=== PATIENT | female | born 1985 | race Caucasian/White ===

== ENCOUNTER 2016-11-21 13:18 | Emergency (ER) | payer OTHER ==
[2016-11-21] MEDS ORDERED: ZOFRAN IV ONE (14:57)
[2016-11-21] MEDS ORDERED: NACL 0.9% 1000 ML 1,000 ML IV ONE ×2 (14:57→19:52)
--- NOTE | 2016-11-21 14:57 | Emergency Department Report ---
HPI - General Chief Complaint: Dyspnea/Respdistress Time Seen by Provider: 11/21/16 14:18 - HPI HPI: This is a 31-year-old female presents to the emergency department with complaint of dehydration, the inability to eat and drink and some generalized weakness. The patient also says that while she does not feel short of breath overall she does get some shortness of breath and/or fatigue with exertion. The patient was recently diagnosed with diverticulitis at [facility] that she calls her "intestinal infection" and says that she is still on antibiotics for it. She says that her abdomen no longer hurts but she still feels the effects of the infection. She says that when she eats she gets nausea and vomiting. She feels like she has not eaten anything substantial for the past 2 weeks. No recent travel or sick contacts at home. She does not have a primary care doctor. She denies any other past medical history. ED Past Medical Hx - Past Medical History Previous Medical History?: Yes Additional medical history: Duodenal stenosis - Surgical History Past Surgical History?: Yes Additional Surgical History: Duodenal stenosis - Social History Smoking Status: Never Smoker Substance Use Type: None - Medications Home Medications: Home Medications Medication Instructions Recorded Confirmed Last Taken Type Ondansetron [Zofran TAB] 4 mg PO Q8HR PRN #15 tablet 11/21/16 Unknown Rx ED Review of Systems ROS: Stated complaint: SOB,INFECTION OF INTESTINES Other details as noted in HPI Comment: All other systems reviewed and negative Constitutional: weakness. denies: chills, fever Eyes: denies: eye pain, eye discharge, vision change ENT: denies: ear pain, throat pain Respiratory: SOB with exertion. denies: cough Cardiovascular: palpitations. denies: chest pain Gastrointestinal: nausea, vomiting Genitourinary: denies: urgency, dysuria, discharge Musculoskeletal: denies: back pain, joint swelling, arthralgia Skin: denies: rash, lesions Neurological: weakness. denies: headache, numbness Physical Exam - Physical Exam Vital Signs: Vital Signs 11/21/16 13:44 Temperature 98.3 F Pulse Rate 144 H Respiratory 18 Rate Blood Pressure 147/93 O2 Sat by Pulse 98 Oximetry Physical Exam: GENERAL: The patient is well-developed well-nourished. HEENT: Normocephalic. Atraumatic. Extraocular motions are intact. Patient has moist mucous membranes. Pupils equal reactive to light bilaterally. NECK: Supple. Trachea is midline. CHEST/LUNGS: Clear to auscultation. There is no respiratory distress noted. HEART/CARDIOVASCULAR: Regular. There is mild tachycardia. There is no gallop rub or murmur. ABDOMEN: Abdomen is soft, nontender. Patient has normal bowel sounds. Morbidly obese habitus. SKIN: There is no rash. There is no edema. There is no diaphoresis. NEURO: The patient is awake, alert, and oriented. The patient is cooperative. The patient has no focal neurologic deficits. The patient has normal speech. MUSCULOSKELETAL: There is no tenderness or deformity. There is no limitation range of motion. There is no evidence of acute injury. ED Course Vital Signs 11/21/16 13:44 Temperature 98.3 F Pulse Rate 144 H Respiratory 18 Rate Blood Pressure 147/93 O2 Sat by Pulse 98 Oximetry ED Medical Decision Making - Lab Data Result diagrams: 11/21/16 14:59 11/21/16 14:59 - EKG Data -: EKG Interpreted by Me EKG shows normal: sinus rhythm, axis, intervals, QRS complexes, ST-T waves Rate: tachycardia (127 bpm) - EKG Data When compared to previous EKG there are: previous EKG unavailable Interpretation: other (sinus tach) - Radiology Data Radiology results: report reviewed, image reviewed interpreted by me: Chest x-ray did not show any acute process. Heart is normal shape and size. No effusions. No pneumothorax. No signs of pneumonia seen. CT angiography of the chest does not show any evidence for pulmonary embolus and. Soft tissue density focus in the anterior mediastinum. The location and configuration of his focused suggest residual thymus. Marked elevation of the right hemidiaphragm. - Medical Decision Making This is a 31-year-old female presents to the emergency department with complaint of shortness of breath, as well as some nausea and vomiting. The patient recently was diagnosed with diverticulitis and placed on antibiotics at [facility]. However even before this the patient has been having nausea and /or vomiting any food or liquid administration. She currently has no abdominal pain and does not have any fever, both of which she seemed to have when she was at [facility]. Patient's labs show elevated transaminases, slightly elevated lipase, and a TSH close to 0. However since the patient is having no abdominal discomfort, I believe the elevated belly labs to be secondary to not eating and to the nausea and vomiting. The chest x-ray was done that does not show any signs of pneumonia, pleural effusions, pneumothorax or any acute process. Patient has an EKG that only shows sinus tachycardia. She had an elevated d-dimer so a CT angiography of the chest was done. There was no pulmonary embolism, pleural effusions or any acute process. Patient was given 2 L of IV fluid resuscitation. Since tachycardia resolved and the patient says she is feeling much better. However most of her problem occurs with exertion. I do believe there is a significant amount of her symptoms that are due to deconditioning as the patient admits that she is not left the bed much in the past few weeks. I believe she is also physically deconditioned from a lack of food and drink. The patient has been encouraged to increase oral rehydration and will be given some Zofran ODT to assist with this. She does not yet have to jump back into full/normal meals but she's been encouraged to eat stuff that is easy on the stomach such as the Dinesh diet indurated small quantities. She already has a primary care doctor and collar packer for follow-up. She will return to the ER with any worsening of her symptoms or any acute distress. Critical care attestation.: If time is entered above; I have spent that time in minutes in the direct care of this critically ill patient, excluding procedure time. ED Disposition Clinical Impression: Dehydration, Transaminitis, Shortness of breath, Hyperthyroidism Nausea and vomiting Qualifiers: Vomiting type: unspecified Vomiting Intractability: non-intractable Qualified Code(s): R11.2 - Nausea with vomiting, unspecified Disposition: DISCHARGED TO HOME OR SELFCARE Is pt being admited?: No Condition: Stable Instructions: Dehydration (ED), Hyperthyroidism (ED), Acute Nausea and Vomiting (ED), Dyspnea (ED) Additional Instructions: Please follow-up with your primary care doctor and collar packer. Increase your oral rehydration. Return to the emergency department with any worsening of your symptoms or any acute distress. Prescriptions: Ondansetron [Zofran TAB] 4 mg PO Q8HR PRN #15 tablet PRN Reason: Nausea Referrals: PRIMARY CARE,MD [Primary Care Provider] - 3-5 Days Forms: Work/School Release Form(ED) Time of Disposition: 20:11
[2016-11-21 15:18] LABS: Basophils % (Auto) 0.5 % (0.0-1.8); Eosinophils % (Auto) 0.4 % (0.0-4.3); Hematocrit 41.5 % (30.3-42.9); Hemoglobin 13.3 gm/dl (10.1-14.3); Mean Corpuscular HGB Conc 32 % (30-34); Mean Corpuscular Hemoglobin 26 pg (28-32); Mean Corpuscular Volume 82 fl (79-97); Platelet Count 388 K/mm3 (140-440); Red Blood Count 5.06 M/mm3 (3.65-5.03); Red Cell Distribution Width 14.6 % (13.2-15.2)
[2016-11-21 15:33] LABS: Anion Gap 23 mmol/L; Blood Urea Nitrogen 11 mg/dL (7-17); Calcium 10.4 mg/dL (8.4-10.2); Carbon Dioxide 21 mmol/L (22-30); Chloride 99.3 mmol/L (98-107); Glucose 127 mg/dL (65-100); Potassium 4.3 mmol/L (3.6-5.0); Sodium 139 mmol/L (137-145)
[2016-11-21 16:06] LABS: Albumin 3.6 g/dL (3.9-5); Albumin/Globulin Ratio 0.8 %; Bilirubin,Direct 0.2 mg/dL (0-0.2); Bilirubin,Indirect 0.3 mg/dL; Bilirubin,Total 0.5 mg/dL (0.1-1.2); Total Protein 8.1 g/dL (6.3-8.2)
--- NOTE | 2016-11-21 16:10 | XRay Report ---
ROUTINE CHEST, TWO VIEWS: PA and lateral views demonstrate the heart and mediastinal contour to be of normal size and shape. The lungs are clear and fully expanded and the soft tissues and bony structures are normal. IMPRESSION: Normal study.
[2016-11-21] MEDS ORDERED: NACL ONE ×2 (17:11→17:15)
--- NOTE | 2016-11-21 19:15 | Cat Scan Report ---
FINAL REPORT EXAM: CT ANGIO CHEST HISTORY: SOB, elevated dimer TECHNIQUE: Enhanced CT of the chest at 2.5 mm axial intervals following a pulmonary embolism protocol. Coronal and sagittal imaging were also obtained. Oblique coronal MIP projections were obtained. Contrast: 100 ml of Omnipaque 350 given IV. PRIORS: None. FINDINGS: There is no evidence for pulmonary embolism in the main pulmonary artery, right and left pulmonary arteries or their major distributions. However, CT does not exclude distal pulmonary emboli. In the anterior mediastinum, there is a elongated soft tissue density focus measuring 3.6 x 2.1 x 6.5 cm (axial image 31, series 3, and coronal image 113, series 202). In this location and with this configuration, this is probably residual thymus, however, rather than fat density, it is intermediate soft tissue density which could be due to enhancement. Therefore, residual thymus cannot be confirmed. Unenhanced CT may be helpful to confirm internal fat to support a benign entity. Otherwise, etiologies for anterior mediastinal mass are not entirely excluded, including lymphoma. Otherwise, the lung parenchyma are expanded and clear with no evidence for parenchymal nodules, infiltrates, congestion, or pleural effusion. There is no evidence for bilateral hilar or axillary adenopathy. Cardiovascular structures are within normal limits. Marked elevation of the right hemidiaphragm is noted. Images through the lung bases include the upper abdomen which show no abnormalities of the visualized abdominal viscera. Bony structures demonstrate no focal abnormalities. IMPRESSION: 1. no evidence for pulmonary embolism. 2. Soft tissue density focus in the anterior mediastinum. The location and configuration of this focus suggest residual thymus. However, it is intermediate in density which does not confirm thymus. Unenhanced CT of the chest is suggested on an outpatient basis. 3. Marked elevation of the right hemidiaphragm.
[2016-11-21] MEDS ORDERED: NACL 0.9% 1000 ML 1,000 ML ONE (19:45)
[2016-11-21 21:19] VITALS: BP 113/71
== END 2016-11-21 22:20 | disposition home or self-care (01) ==
LOC: ED 13:18
DX: E86.0 Dehydration (principal); R74.0 Nonspecific elevation of levels of transaminase and lactic acid dehydrogenase [LDH]; E05.90 Thyrotoxicosis, unspecified without thyrotoxic crisis or storm; R06.02 Shortness of breath; R11.2 Nausea with vomiting, unspecified
CPT/HCPCS: 36415; 71020; 71275; 80048; 80074; 83690; 84439; 84443; 84481; 84484; 84703; 85025; 85379; 93005; 93010; 96361; 96374; 99285; J2405; J7030; Q9967

== ENCOUNTER 2017-01-17 17:49 | Emergency (ER) | payer OTHER ==
[2017-01-17 20:24] VITALS: BP 179/109
[2017-01-17 20:49] LABS: Basophils % (Auto) 0.3 % (0.0-1.8); Eosinophils % (Auto) 0.2 % (0.0-4.3); Hemoglobin 12.2 gm/dl (10.1-14.3); Mean Corpuscular HGB Conc 32 % (30-34); Mean Corpuscular Hemoglobin 27 pg (28-32); Mean Corpuscular Volume 83 fl (79-97); Platelet Count 288 K/mm3 (140-440); Red Blood Count 4.57 M/mm3 (3.65-5.03); Red Cell Distribution Width 14.6 % (13.2-15.2); White Blood Count 6.8 K/mm3 (4.5-11.0)
[2017-01-17 21:06] LABS: Alanine Aminotransferase 50 units/L (7-56); Albumin 3.6 g/dL (3.9-5); Albumin/Globulin Ratio 1.1 %; Alkaline Phosphatase 61 units/L (35-129); Anion Gap 25 mmol/L; Blood Urea Nitrogen 8 mg/dL (7-17); Calcium 10.3 mg/dL (8.4-10.2); Carbon Dioxide 20 mmol/L (22-30); Chloride 99.5 mmol/L (98-107); Glucose 84 mg/dL (65-100); Lipase 44 units/L (13-60); Potassium 4.4 mmol/L (3.6-5.0); Sodium 140 mmol/L (137-145)
[2017-01-17 22:02] LABS: Bacteria,Urine 1+ /HPF (Negative); Bilirubin,Urine NEG (Negative); Blood,Urine SM (Negative); Ketones,Urine 80 mg/dL (Negative); Leukocyte Esterase,Urine NEG (Negative); Mucus,Urine FEW /HPF; Nitrite,Urine NEG (Negative); Urobilinogen,Urine < 2.0 mg/dL (<2.0); WBC,Urine < 1.0 /HPF (0.0-6.0)
--- NOTE | 2017-01-19 17:06 | ED Elopement Review ---
ED Pt Elopement review - Results review Lab results: Laboratory Tests 01/17/17 01/17/17 01/17/17 20:30 20:30 Unknown WBC 6.8 RBC 4.57 Hgb 12.2 Hct 38.0 MCV 83 MCH 27 L MCHC 32 RDW 14.6 Plt Count 288 Lymph % (Auto) 17.3 Sutton % (Auto) 11.8 H Eos % (Auto) 0.2 Baso % (Auto) 0.3 Lymph # 1.2 Sutton # 0.8 Eos # 0.0 Baso # 0.0 Seg Neutrophils % 70.4 H Seg Neutrophils # 4.8 Sodium 140 Potassium 4.4 Chloride 99.5 Carbon Dioxide 20 L Anion Gap 25 BUN 8 Creatinine 0.2 L Estimated GFR > 60 BUN/Creatinine Ratio 40.00 Glucose 84 Calcium 10.3 H Total Bilirubin 0.70 AST 57 H ALT 50 Alkaline Phosphatase 61 Total Protein 7.0 Albumin 3.6 L Albumin/Globulin Ratio 1.1 Lipase 44 Urine Color Yellow Urine Turbidity Slightly-cloudy Urine pH 5.0 Ur Specific [place] 1.020 Urine Protein 30 mg/dl Urine Glucose (UA) 50 Urine Ketones 80 Urine Blood Sm Urine Nitrite Neg Urine Bilirubin Neg Urine Urobilinogen < 2.0 Ur Leukocyte Esterase Neg Urine WBC (Auto) < 1.0 Urine RBC (Auto) 1.0 U Epithel Cells (Auto) 15.0 H Urine Bacteria (Auto) 1+ Urine Mucus Few Urine HCG, Qual Negative - Call Back decision Pt Call Back Decision: No action required
== END 2017-01-17 23:40 | disposition left against medical advice (07) ==
LOC: ED 17:49
DX: R11.0 Nausea (principal); R63.0 Anorexia; Z53.21 Procedure and treatment not carried out due to patient leaving prior to being seen by health care provider
CPT/HCPCS: 36415; 80053; 81001; 81025; 83690; 85025

== ENCOUNTER 2017-01-23 09:38 | Emergency (ER) | payer OTHER ==
[2017-01-23] MEDS ORDERED: ZOFRAN ONE (10:45)
[2017-01-23] MEDS ORDERED: ZOFRAN IV ONE (10:55)
[2017-01-23] MEDS ORDERED: NACL 0.9% 1000 ML 1,000 ML IV ONE (11:12)
--- NOTE | 2017-01-23 11:17 | Emergency Department Report ---
ED Dizziness HPI - General Chief Complaint: Dizziness Stated Complaint: GENERAL WEAKNESS Time Seen by Provider: 01/23/17 11:02 Source: patient, EMS, RN notes reviewed, old records reviewed Mode of arrival: Stretcher Limitations: No Limitations - History of Present Illness Initial Comments: 31-year-old female presents to the emergency department via EMS complaining of dizziness. Patient states she was discharged from the hospital 2 days ago after being admitted for acute diverticulitis. At this time, she was also noted to have hyperthyroidism. Patient states she took her first dose of methimazole last night. This morning while she was getting dressed, the patient states she began feeling lightheaded, like she was going to pass out. Patient was sitting when this occurred. She did not lose consciousness. Patient also reports she has not had a bowel movement in one week. She reports nausea, but denies vomiting. There has been no fever. There are no other complaints. MD Complaint: near syncope -: Sudden, This morning Timing: sudden onset Description: near-syncope History of Same: No History of Trauma: No Severity: moderate Improves With: rest Worsens With: nothing - Related Data Previous Rx's Medication Instructions Recorded Last Taken Type Ciprofloxacin [Ciprofloxacin ORAL 500 mg PO Q12H #20 ml 01/21/17 Unknown Rx LIQ] Methimazole [Tapazole] 5 mg PO Q8H #30 tab 01/21/17 Unknown Rx Propranolol [Inderal] 40 mg PO Q12HR #30 tablet 01/21/17 Unknown Rx metroNIDAZOLE [Flagyl TAB] 500 mg PO Q8HR #30 tablet 01/21/17 Unknown Rx oxyCODONE /ACETAMINOPHEN [Percocet 1 tab PO BID PRN #10 tablet 01/21/17 Unknown Rx 5/325] Allergies Allergy/AdvReac Type Severity Reaction Status Date / Time No Known Allergies Allergy Verified 01/18/17 12:16 ED Review of Systems ROS: Stated complaint: GENERAL WEAKNESS Other details as noted in HPI Comment: All other systems reviewed and negative Cardiovascular: syncope (lightheadedness, no loss of consciousness) Gastrointestinal: nausea, constipation ED Past Medical Hx - Past Medical History Previous Medical History?: Yes Additional medical history: Duodenal stenosis. DIVERTICULITIS. OBESITY. Hyperthyroidism - Surgical History Past Surgical History?: Yes Additional Surgical History: Duodenal stenosis - Family History Family history: no significant - Social History Smoking Status: Never Smoker Substance Use Type: None - Medications Home Medications: Home Medications Medication Instructions Recorded Confirmed Last Taken Type Ciprofloxacin [Ciprofloxacin ORAL 500 mg PO Q12H #20 ml 01/21/17 Unknown Rx LIQ] Methimazole [Tapazole] 5 mg PO Q8H #30 tab 01/21/17 Unknown Rx Propranolol [Inderal] 40 mg PO Q12HR #30 tablet 01/21/17 Unknown Rx metroNIDAZOLE [Flagyl TAB] 500 mg PO Q8HR #30 tablet 01/21/17 Unknown Rx oxyCODONE /ACETAMINOPHEN [Percocet 1 tab PO BID PRN #10 tablet 01/21/17 Unknown Rx 5/325] ED Physical Exam - General Limitations: No Limitations General appearance: alert, in no apparent distress - Head Head exam: Present: atraumatic, normocephalic - Eye Eye exam: Present: normal appearance, PERRL, EOMI - ENT ENT exam: Present: normal exam, normal orophraynx, mucous membranes moist - Neck Neck exam: Present: normal inspection, full ROM. Absent: tenderness - Respiratory Respiratory exam: Present: normal lung sounds bilaterally. Absent: respiratory distress - Cardiovascular Cardiovascular Exam: Present: regular rate, normal rhythm, normal heart sounds - GI/Abdominal GI/Abdominal exam: Present: soft, tenderness (mild left lower quadrant tenderness to palpation. Patient states this is the same pain that she was admitted for last week. It is improved compared to previous.), normal bowel sounds. Absent: distended, guarding, rebound - Extremities Exam Extremities exam: Present: normal inspection, full ROM. Absent: tenderness - Back Exam Back exam: Present: normal inspection, full ROM. Absent: tenderness - Neurological Exam Neurological exam: Present: alert, oriented X3. Absent: motor sensory deficit - Skin Skin exam: Present: warm, dry, intact ED Course Vital Signs 01/23/17 01/23/17 10:05 10:52 Temperature 97.8 F Pulse Rate 80 Respiratory 19 18 Rate Blood Pressure 135/69 O2 Sat by Pulse 99 100 Oximetry ED Medical Decision Making - Lab Data Result diagrams: 01/23/17 11:27 01/23/17 11:27 - EKG Data -: EKG Interpreted by Id EKG shows normal: sinus rhythm, axis, intervals, QRS complexes Rate: normal - EKG Data When compared to previous EKG there are: previous EKG unavailable Interpretation: nonspecific ST-T wave ramona - Medical Decision Making Lab results reviewed and discussed with the patient. Patient reports feeling back to normal following IV fluids and electrolyte replacement. Patient will be discharged home at this time to follow up with her primary care physician. - Differential Diagnosis dehydration, hyperthyroidism, electrolyte abnormality, constipation Critical care attestation.: If time is entered above; I have spent that time in minutes in the direct care of this critically ill patient, excluding procedure time. ED Disposition Clinical Impression: Mild dehydration, Hypokalemia, Hypomagnesemia Disposition: DISCHARGED TO HOME OR SELFCARE Is pt being admited?: No Condition: Stable Instructions: Dehydration (ED) Referrals: PRIMARY CARE, [Primary Care Provider] - 3-5 Days Time of Disposition: 14:31
[2017-01-23 11:56] LABS: Bilirubin,Urine NEG (Negative); Blood,Urine NEG (Negative); Ketones,Urine 80 mg/dL (Negative); Leukocyte Esterase,Urine NEG (Negative); Mucus,Urine FEW /HPF; Nitrite,Urine NEG (Negative); Protein,Urine <15 mg/dL mg/dL (Negative); RBC,Urine < 1.0 /HPF (0.0-6.0); Urobilinogen,Urine < 2.0 mg/dL (<2.0)
[2017-01-23 12:03] LABS: Anion Gap 23 mmol/L; Blood Urea Nitrogen 6 mg/dL (7-17); Calcium 9.7 mg/dL (8.4-10.2); Carbon Dioxide 23 mmol/L (22-30); Chloride 99.8 mmol/L (98-107); Glucose 77 mg/dL (65-100); Potassium 3.3 mmol/L (3.6-5.0); Sodium 142 mmol/L (137-145)
[2017-01-23 12:16] LABS: Basophils % (Auto) 0.7 % (0.0-1.8); Eosinophils % (Auto) 0.5 % (0.0-4.3); Hematocrit 35.5 % (30.3-42.9); Hemoglobin 11.5 gm/dl (10.1-14.3); Mean Corpuscular HGB Conc 32 % (30-34); Mean Corpuscular Hemoglobin 27 pg (28-32); Mean Corpuscular Volume 82 fl (79-97); Platelet Count 234 K/mm3 (140-440); Red Blood Count 4.34 M/mm3 (3.65-5.03); Red Cell Distribution Width 14.7 % (13.2-15.2); White Blood Count 5.6 K/mm3 (4.5-11.0)
[2017-01-23] MEDS ORDERED: MAGNESIUM SULFATE 2GM/50ML 2 GM/50 ML BAG IV ONE (12:28)
[2017-01-23] MEDS ORDERED: K-DUR PO ONE (12:28)
[2017-01-23 14:52] VITALS: BP 137/87
== END 2017-01-23 14:53 | disposition home or self-care (01) ==
LOC: ED 09:38
DX: E86.0 Dehydration (principal); E87.6 Hypokalemia; E83.42 Hypomagnesemia; E05.90 Thyrotoxicosis, unspecified without thyrotoxic crisis or storm
CPT/HCPCS: 36415; 80048; 81001; 83735; 84443; 85025; 93005; 93010; 96361; 96365; 96375; 99284; J2405; J3475; J7030

== ENCOUNTER 2017-03-01 16:04 | Emergency (ER) | payer OTHER ==
[2017-03-01 17:54] VITALS: BP 153/88
[2017-03-01 18:50] LABS: Basophils % (Auto) 0.3 % (0.0-1.8); Eosinophils % (Auto) 0.4 % (0.0-4.3); Hematocrit 37.2 % (30.3-42.9); Hemoglobin 12.2 gm/dl (10.1-14.3); Mean Corpuscular HGB Conc 33 % (30-34); Mean Corpuscular Hemoglobin 26 pg (28-32); Mean Corpuscular Volume 80 fl (79-97); Platelet Count 279 K/mm3 (140-440); Red Blood Count 4.63 M/mm3 (3.65-5.03); Red Cell Distribution Width 14.5 % (13.2-15.2); White Blood Count 5.1 K/mm3 (4.5-11.0)
[2017-03-01 19:01] LABS: Alanine Aminotransferase 52 units/L (7-56); Albumin 3.4 g/dL (3.9-5); Albumin/Globulin Ratio 0.9 %; Alkaline Phosphatase 64 units/L (35-129); Anion Gap 23 mmol/L; Blood Urea Nitrogen 12 mg/dL (7-17); Calcium 11.4 mg/dL (8.4-10.2); Carbon Dioxide 22 mmol/L (22-30); Chloride 103.1 mmol/L (98-107); Glucose 108 mg/dL (65-100); INR 1.34 (0.87-1.13); Potassium 3.5 mmol/L (3.6-5.0); Sodium 145 mmol/L (137-145); Total Protein 7.4 g/dL (6.3-8.2)
== END 2017-03-01 20:00 | disposition left against medical advice (07) ==
LOC: ED 16:04
DX: K57.92 Diverticulitis of intestine, part unspecified, without perforation or abscess without bleeding (principal); E03.9 Hypothyroidism, unspecified; Z53.21 Procedure and treatment not carried out due to patient leaving prior to being seen by health care provider
CPT/HCPCS: 36415; 80053; 84436; 84443; 84484; 84703; 85025; 85379; 85610; 93005; 93010

== ENCOUNTER 2018-11-08 06:44 | Emergency (ER) | payer SELFPAY ==
--- NOTE | 2018-11-08 09:01 | Emergency Department Report ---
Chief Complaint: Medical Clearance Stated Complaint: MED REFILL Time Seen by Provider: 11/08/18 08:29 - HPI History of Present Illness: This is a 33-year-old female with a history of hypertension who takes propranolol presents to ED for medication refill station medication couple days ago. Patient denies any symptoms such as headache, chest pain, shortness of breath or blurry vision. - ROS Review of Systems: As noted in HPI - Exam Vital Signs: Vital Signs 11/08/18 06:56 Temperature 98.8 F Pulse Rate 88 Respiratory 16 Rate Blood Pressure 155/88 O2 Sat by Pulse 100 Oximetry Physical Exam: GENERAL: Alert and oriented x3, no apparent distress, Normal Gait, atraumatic. HEAD: Head is normocephalic and a-traumatic. LUNGS: Symetrical with respiration, No wheezing, no rales or crackles, CTAB. HEART: S1, S2 present, regular rate and rhythm without murmur, no rubs, no gallops. Non tender to palpation SKIN: Warm and dry, No lesions, No ulceration or induration present. MSE screening note: Focused history and physical exam performed. Due to findings the following was ordered: ED Medical Decision Making - Medical Decision Making 33-year-old female symptomatic history of hypertension medication refill. Discussed the patient follow up with primary care physician. Referrals given. Vital signs are normal she is in no acute distress. ED Disposition for MSE Clinical Impression: Medication refill Disposition: DC-01 TO HOME OR SELFCARE Is pt being admited?: No Does the pt Need Aspirin: No Condition: Stable Instructions: Chronic Hypertension (ED) Additional Instructions: Make sure to follow up with the primary care physician as discussed. Take all your medications as you've been prescribed. If you have any worsening symptoms or develop new symptoms please return to ED immediately. Prescriptions: Propranolol [Inderal] 40 mg PO Q12HR #30 tablet Referrals: DICKSON SINGLETON MD [Primary Care Provider] - 3-5 Days Forms: Work/School Release Form(ED) Time of Disposition: 09:26
[2018-11-08 09:53] VITALS: BP 150/86
== END 2018-11-08 09:52 | disposition home or self-care (01) ==
LOC: ED 06:44
DX: I10 Essential (primary) hypertension (principal); Z76.0 Encounter for issue of repeat prescription
CPT/HCPCS: 99282

== ENCOUNTER 2019-01-26 06:58 | Emergency (ER) | payer OTHER ==
[2019-01-26] MEDS ORDERED: TYLENOL PO ONE (08:38)
[2019-01-26] MEDS ORDERED: IBUPROFEN PO ONE (08:38)
[2019-01-26] MEDS ORDERED: LIDOCAINE VISCOUS 2% PO ONE (08:38)
--- NOTE | 2019-01-26 09:37 | XRay Report ---
PROCEDURE: XR CHEST ROUTINE 2V TECHNIQUE: PA and lateral chest radiographs were obtained. HISTORY: cough COMPARISONS: None. FINDINGS: Heart: Normal. Mediastinum/Vessels: Normal. Lungs/Pleural space: Normal. Bony thorax: No acute osseous abnormality. Slight elevation right hemidiaphragm. IMPRESSION: No acute pulmonary disease.. This document is electronically signed by Masoud De Paz MD., Jan 26 2019 09:35:40 AM ET
--- NOTE | 2019-01-26 10:21 | Emergency Department Report ---
ED General Adult HPI - General Chief complaint: Upper Respiratory Infection Stated complaint: FEVER,EARACHE,COUGH,SORE THROAT,HYPERTHYROIDISM Time Seen by Provider: 01/26/19 08:15 Source: patient Mode of arrival: Ambulatory Limitations: No Limitations - History of Present Illness Initial comments: Patient is a 33-year-old female history of hypothyroidism who presents with cough congestion sore throat that's been going on since Sunday. Patient states that she has sore throat that the pain is moderate swelling makes it worse nothing makes it better. She is felt febrile however she has no objective temperature. Patient also states that she is out of her blood pressure and her thyroid medication. Patient does not smoke and she doesn't drink. Patient denies having any sick contacts. Severity scale (0 -10): 6 - Related Data Previous Rx's Medication Instructions Recorded Last Taken Type Phenylephrine/Dm/Acetaminop/GG 1 each PO Q6H #30 tablet 01/26/19 Unknown Rx [Tylenol Cold & Flu Severe Cplt] Propranolol [Inderal] 40 mg PO Q12HR #30 tablet 01/26/19 Unknown Rx methIMAzole [Tapazole] 10 mg PO Q8H #20 tablet 01/26/19 Unknown Rx Allergies Allergy/AdvReac Type Severity Reaction Status Date / Time No Known Allergies Allergy Verified 03/01/17 17:48 ED Review of Systems ROS: Stated complaint: FEVER,EARACHE,COUGH,SORE THROAT,HYPERTHYROIDISM Other details as noted in HPI Constitutional: denies: chills, fever Eyes: denies: eye pain, eye discharge, vision change ENT: throat pain. denies: ear pain Respiratory: denies: cough, shortness of breath, wheezing Cardiovascular: denies: chest pain, palpitations Endocrine: no symptoms reported Gastrointestinal: denies: abdominal pain, nausea, diarrhea Genitourinary: denies: urgency, dysuria, discharge Musculoskeletal: denies: back pain, joint swelling, arthralgia Skin: denies: rash, lesions Neurological: denies: headache, weakness, paresthesias Psychiatric: denies: anxiety, depression Hematological/Lymphatic: denies: easy bleeding, easy bruising ED Past Medical Hx - Past Medical History Additional medical history: Duodenal stenosis. DIVERTICULITIS. OBESITY. HYPERTHYROID - Surgical History Additional Surgical History: Duodenal stenosis - Social History Smoking Status: Never Smoker Substance Use Type: None - Medications Home Medications: Home Medications Medication Instructions Recorded Confirmed Last Taken Type Phenylephrine/Dm/Acetaminop/GG 1 each PO Q6H #30 tablet 01/26/19 Unknown Rx [Tylenol Cold & Flu Severe Cplt] Propranolol [Inderal] 40 mg PO Q12HR #30 tablet 01/26/19 Unknown Rx methIMAzole [Tapazole] 10 mg PO Q8H #20 tablet 01/26/19 Unknown Rx ED Physical Exam - General Limitations: No Limitations General appearance: alert, in no apparent distress - Head Head exam: Present: atraumatic, normocephalic - Eye Eye exam: Present: normal appearance - ENT ENT exam: Present: mucous membranes moist - Neck Neck exam: Present: normal inspection - Respiratory Respiratory exam: Present: normal lung sounds bilaterally. Absent: respiratory distress - Cardiovascular Cardiovascular Exam: Present: regular rate, normal rhythm. Absent: systolic murmur, diastolic murmur, rubs, gallop - GI/Abdominal GI/Abdominal exam: Present: soft, normal bowel sounds - Extremities Exam Extremities exam: Present: normal inspection - Back Exam Back exam: Present: normal inspection - Neurological Exam Neurological exam: Present: alert, oriented X3 - Psychiatric Psychiatric exam: Present: normal affect, normal mood - Skin Skin exam: Present: warm, dry, intact, normal color. Absent: rash ED Course Vital Signs 01/26/19 01/26/19 07:13 10:04 Temperature 98.2 F Pulse Rate 108 H Respiratory 16 18 Rate Blood Pressure 125/92 [Right] O2 Sat by Pulse 100 Oximetry ED Medical Decision Making - Medical Decision Making Chief medical diagnosis: Viral pharyngitis Differential diagnosis: Pneumonia, upper respiratory tract infection I will get x-ray PATIENT pain medicines and I will refill patient's prescription medications. Discussed plan with patient. Patient agrees with plan additional verbal discharge instructions were given. Critical care attestation.: If time is entered above; I have spent that time in minutes in the direct care of this critically ill patient, excluding procedure time. ED Disposition Clinical Impression: Viral pharyngitis Disposition: DC-01 TO HOME OR SELFCARE Is pt being admited?: No Does the pt Need Aspirin: No Condition: Stable Instructions: Pharyngitis (ED) Prescriptions: Propranolol [Inderal] 40 mg PO Q12HR #30 tablet methIMAzole [Tapazole] 10 mg PO Q8H #20 tablet Phenylephrine/Dm/Acetaminop/GG [Tylenol Cold & Flu Severe Cplt] 1 each PO Q6H #30 tablet Referrals: DEVONTE PEREZ MD [Primary Care Provider] - 3-5 Days
[2019-01-26 11:01] VITALS: BP 132/82
== END 2019-01-26 11:00 | disposition home or self-care (01) ==
LOC: ED 06:58
DX: J02.8 Acute pharyngitis due to other specified organisms (principal); E05.90 Thyrotoxicosis, unspecified without thyrotoxic crisis or storm
CPT/HCPCS: 71046; 99283

== ENCOUNTER 2019-05-12 08:14 | Emergency (ER) | payer SELFPAY ==
[2019-05-12 08:22] VITALS: BP 178/85
--- NOTE | 2019-05-12 08:26 | Emergency Department Report ---
ED Recheck HPI - General Chief Complaint: Recheck/Abnormal Lab/Rx Stated Complaint: MEDICATION REFILL Time Seen by Provider: 05/12/19 08:24 Source: patient Mode of arrival: Ambulatory Limitations: No Limitations - History of Present Illness Initial Comments: This is a 34-year-old female nontoxic, well nourished in appearance, no acute signs of distress presents to the ED for medication refill of propranolol and Tapazole. Patient stated she has been out of this and is requesting for refill. Patient denies any symptoms. Patient states she is asymptomatic. Denies any headache, chest pain, shortness of breath, fever, chills, nausea, vomiting, numbness or tingling. Patient denies any allergies or significant past medical history. MD Complaint: medication refill request -: days(s) Returns Today for: request for prescription Symptoms Since Prior Visit: no new symptoms Associated Symptoms: none. denies: fever, chills, chest pain, shortness of breath, rash, malaise, nasuea, abdominal pain - Related Data Previous Rx's Medication Instructions Recorded Last Taken Type Phenylephrine/Dm/Acetaminop/GG 1 each PO Q6H #30 tablet 01/26/19 Unknown Rx [Tylenol Cold & Flu Severe Cplt] Propranolol [Inderal] 40 mg PO Q12HR #30 tablet 01/26/19 Unknown Rx methIMAzole [Tapazole] 10 mg PO Q8H #20 tablet 01/26/19 Unknown Rx Propranolol [Inderal] 40 mg PO Q12H #30 tablet 05/12/19 Unknown Rx methIMAzole [Tapazole] 10 mg PO Q8H #20 tablet 05/12/19 Unknown Rx Allergies Allergy/AdvReac Type Severity Reaction Status Date / Time No Known Allergies Allergy Verified 03/01/17 17:48 ED Review of Systems ROS: Stated complaint: MEDICATION REFILL Other details as noted in HPI Constitutional: denies: chills, fever Eyes: denies: eye pain, eye discharge, vision change ENT: denies: ear pain, throat pain Respiratory: denies: cough, shortness of breath, wheezing Cardiovascular: denies: chest pain, palpitations Endocrine: no symptoms reported Gastrointestinal: denies: abdominal pain, nausea, diarrhea Genitourinary: denies: urgency, dysuria, discharge Musculoskeletal: denies: back pain, joint swelling, arthralgia Skin: denies: rash, lesions Neurological: denies: headache, weakness, paresthesias Psychiatric: denies: anxiety, depression Hematological/Lymphatic: denies: easy bleeding, easy bruising ED Past Medical Hx - Past Medical History Previous Medical History?: Yes Hx Hypertension: Yes Additional medical history: Duodenal stenosis. DIVERTICULITIS. OBESITY. HYPERTHYROID - Surgical History Past Surgical History?: Yes Additional Surgical History: Duodenal stenosis - Social History Smoking Status: Never Smoker Substance Use Type: None - Medications Home Medications: Home Medications Medication Instructions Recorded Confirmed Last Taken Type Phenylephrine/Dm/Acetaminop/GG 1 each PO Q6H #30 tablet 01/26/19 Unknown Rx [Tylenol Cold & Flu Severe Cplt] Propranolol [Inderal] 40 mg PO Q12HR #30 tablet 01/26/19 Unknown Rx methIMAzole [Tapazole] 10 mg PO Q8H #20 tablet 01/26/19 Unknown Rx Propranolol [Inderal] 40 mg PO Q12H #30 tablet 05/12/19 Unknown Rx methIMAzole [Tapazole] 10 mg PO Q8H #20 tablet 05/12/19 Unknown Rx ED Physical Exam - General Limitations: No Limitations General appearance: alert, in no apparent distress - Head Head exam: Present: atraumatic, normocephalic - Neck Neck exam: Present: normal inspection, full ROM. Absent: tenderness, meningismus, lymphadenopathy - Respiratory Respiratory exam: Present: normal lung sounds bilaterally. Absent: respiratory distress - Cardiovascular Cardiovascular Exam: Present: regular rate, normal rhythm - Extremities Exam Extremities exam: Present: normal inspection, full ROM - Back Exam Back exam: Present: normal inspection, full ROM - Neurological Exam Neurological exam: Present: alert, oriented X3, normal gait - Psychiatric Psychiatric exam: Present: normal affect, normal mood - Skin Skin exam: Present: warm, dry, intact, normal color. Absent: rash ED Course Vital Signs 05/12/19 08:21 Temperature 98.6 F Pulse Rate 114 H Respiratory 20 Rate Blood Pressure 178/85 [Right] O2 Sat by Pulse 96 Oximetry - Reevaluation(s) Reevaluation #1: 05/12/19 08:27 Patient is speaking in full sentences with no signs of distress noted. ED Recheck MDM - Medical Decision Making This is a 34-year-old female that presents a medication refill. Patient is stable and was examined by me. Patient was given strict precautions to Follow- up with a primary care doctor in 3-5 days or if symptoms worsen and continue return to emergency room as soon as possible. At time of discharge, the patient does not seem toxic or ill in appearance. No acute signs of distress noted. Patient agrees to discharge treatment plan of care. No further questions noted by the patient. Critical care attestation.: If time is entered above; I have spent that time in minutes in the direct care of this critically ill patient, excluding procedure time. ED Disposition Clinical Impression: Medication refill Disposition: DC-01 TO HOME OR SELFCARE Is pt being admited?: No Does the pt Need Aspirin: No Condition: Stable Additional Instructions: Follow-up with a primary care doctor in 3-5 days or if symptoms worsen and continue return to emergency room as soon as possible. Prescriptions: Propranolol [Inderal] 40 mg PO Q12H #30 tablet methIMAzole [Tapazole] 10 mg PO Q8H #20 tablet Referrals: SANJUANA HDEZ MD [Primary Care Provider] - 3-5 Days BULMARO ELLSWORTH MD [Staff Physician] - 3-5 Days [facility] [Outside] - 3-5 Days [facility] [Outside] - 3-5 Days Forms: Work/School Release Form(ED)
== END 2019-05-12 08:39 | disposition home or self-care (01) ==
LOC: ED 08:14
DX: E05.90 Thyrotoxicosis, unspecified without thyrotoxic crisis or storm (principal); I10 Essential (primary) hypertension; Z76.0 Encounter for issue of repeat prescription; Z98.890 Other specified postprocedural states

== ENCOUNTER 2019-09-26 17:31 | Emergency (ER) | payer SELFPAY ==
[2019-09-26] MEDS ORDERED: SODIUM CHLORIDE 0.9% 1000 ML 1,000 ML ONE (18:39)
[2019-09-26] MEDS ORDERED: SODIUM CHLORIDE 0.9% 1000 ML 1,000 ML IV ONE (18:48)
--- NOTE | 2019-09-26 21:01 | Emergency Department Report ---
Minor Respiratory - HPI Chief Complaint: Pain General Stated Complaint: FLU SYM/WEAK Time Seen by Provider: 09/26/19 20:57 Duration: 1 Day Pain Location: Throat, Nose Severity: moderate Minor Respiratory: Yes Rhinorrhea, Yes Sore Throat, Yes Able to Tolerate Fluids, Yes Cough, Yes Sick Contacts, Yes Fever, No Ear Pain, No Hemoptysis, No Chest Pain, No Shortness of Breath Other History: This is a 34 y.o. F. that presents to the ER with myalgia, sore throat, fever, and chills. Patient family states she continue to have panic attacks because she ran out of inderal and tapazole 2 days ago. Patient requesting refills with discharge. Taking OTC cold and flu medication since symptoms started last night with minimal change in symptoms. ED Review of Systems ROS: Stated complaint: FLU SYM/WEAK Other details as noted in HPI Constitutional: chills, fever ENT: throat pain, congestion. denies: ear pain Respiratory: denies: cough, shortness of breath, wheezing Cardiovascular: denies: chest pain, palpitations Endocrine: no symptoms reported Musculoskeletal: denies: back pain, joint swelling, arthralgia Skin: denies: rash, lesions Neurological: denies: headache, weakness, paresthesias Psychiatric: denies: anxiety, depression ED Past Medical Hx - Past Medical History Hx Hypertension: Yes Additional medical history: Duodenal stenosis. DIVERTICULITIS. OBESITY. HYPERTHYROID - Surgical History Additional Surgical History: Duodenal stenosis - Social History Smoking Status: Never Smoker Substance Use Type: None - Medications Home Medications: Home Medications Medication Instructions Recorded Confirmed Last Taken Type Propranolol [Inderal] 40 mg PO Q12HR #30 tablet 01/26/19 Unknown Rx methIMAzole [Tapazole] 10 mg PO Q8H #20 tablet 05/12/19 Unknown Rx Phenylephrine/Dm/Acetaminop/GG 1 each PO Q6H #30 tablet 09/26/19 Unknown Rx [Tylenol Cold-Flu Severe Caplet] Propranolol [Inderal] 40 mg PO Q12H #30 tablet 09/26/19 Unknown Rx methIMAzole [Tapazole] 10 mg PO Q8H #20 tablet 09/26/19 Unknown Rx Minor Respiratory Exam - Exam General: Vital signs noted. No distress. Alert and acting appropriately. HEENT: Yes Moist Mucous Membranes, Yes Rhinorrhea (congested with clear discharge), No Pharyngeal Erythema, No Pharyngeal Exudates, No Conjuctival Injection, No Frontal Tenderness, No Maxillary Tenderness Ear: Neither TM Bulge, Neither TM Erythema, Neither EAC Pain, Neither EAC Discharge Neck: Yes Supple, No Adenopathy Lungs: Yes Good Air Exchange, No Wheezes, No Ronchi, No Stridor, No Cough, No Labored Respirations, No Retractions, No Use of Accessory Muscles, No Other Abnormal Lung Sounds Heart: Yes Regular, No Murmur Abdomen: Yes Normal Bowel Sounds, No Tenderness, No Peritoneal Signs Skin: No Rash, No Edema Neurologic: Alert and oriented, no deficits. Musculoskeletal: Unremarkable. ED Course Vital Signs 09/26/19 17:54 Temperature 100.0 F H Pulse Rate 131 H Respiratory 16 Rate Blood Pressure 184/89 [Right] O2 Sat by Pulse 97 Oximetry ED Medical Decision Making - Lab Data Lab Results 09/26/19 Range/Units Unknown Influenza A (Rapid) Negative (Negative) Influenza B (Rapid) Negative (Negative) Group A Strep Rapid Negative (Negative) - Medical Decision Making 34 y.o. female that presents with URI symptoms. No distress noted. Rapid flu and strep obtained and negative. Otherwise healthy patient presenting with constellation of symptoms likely representing uncomplicated viral upper respiratory symptoms. Denies dysphasia, chest pain, shortness of breath, vomiting, or diarrhea. Given IVF and analgesics. Low suspicion for bacterial sinusitis or pneumonia given exam and history. Tachycardia improved. Patient off hyperthyroid medication for 2 days. Start tylenol cold and flu. Refilled inderal and tapazole. Instructed to take ibuprofen, naproxen, or Tylenol for body aches and fever. No indications at this time for antibiotics. No respiratory distress, otherwise relatively well appearing and nontoxic. Follow up with PMD and strict return precautions. Discharged home stable. Critical care attestation.: If time is entered above; I have spent that time in minutes in the direct care of this critically ill patient, excluding procedure time. ED Disposition Clinical Impression: Tachycardia, Medication refill, Sore throat, Fever and chills, Acute viral pharyngitis Disposition: TO HOME OR SELFCARE Is pt being admited?: No Condition: Stable Instructions: Pharyngitis (ED) Prescriptions: Propranolol [Inderal] 40 mg PO Q12H #30 tablet methIMAzole [Tapazole] 10 mg PO Q8H #20 tablet Phenylephrine/Dm/Acetaminop/GG [Tylenol Cold-Flu Severe Caplet] 1 each PO Q6H #30 tablet Referrals: [facility] [Outside] - 3-5 Days [facility] [Outside] - 3-5 Days [facility] [Outside] - 3-5 Days Forms: Accompanied Note, Work/School Release Form(ED) Time of Disposition: 22:51
[2019-09-26] MEDS: ALPRAZolam 0.5 MG TAB PO ONE ×2 (21:51→22:22)
[2019-09-26 22:44] VITALS: BP 144/70
[2019-09-26] MEDS ORDERED: IBUPROFEN 800 MG TAB PO ONE (22:44)
== END 2019-09-26 23:15 | disposition home or self-care (01) ==
LOC: ED 17:31
DX: J02.9 Acute pharyngitis, unspecified (principal); E05.90 Thyrotoxicosis, unspecified without thyrotoxic crisis or storm; R00.0 Tachycardia, unspecified; I10 Essential (primary) hypertension; E66.9 Obesity, unspecified; Z76.0 Encounter for issue of repeat prescription; Z79.899 Other long term (current) drug therapy; Z98.890 Other specified postprocedural states
CPT/HCPCS: 87116; 87400; 87430; 99283; J7030; 96360

== ENCOUNTER 2019-10-19 08:53 | Emergency (ER) | payer SELFPAY ==
[2019-10-19 09:07] VITALS: BP 163/72
--- NOTE | 2019-10-19 10:31 | Emergency Department Report ---
Chief Complaint: Medical Clearance Stated Complaint: MED REFILL/MTHIMAZOLE Time Seen by Provider: 10/19/19 09:54 - HPI History of Present Illness: 34 yo F, hx of hyperthyroidism, presents to ED requesting methimazole refill. Pt states she has one more pill left. Does not have a PCP, but has appt later this month for first visit with one. Patient reports she does have propranolol at home. - ROS Review of Systems: Comment: All other systems reviewed and negative Constitutional: denies: chills, fever - Exam Vital Signs: Vital Signs 10/19/19 09:06 Pulse Rate 72 Respiratory 18 Rate Blood Pressure 163/72 [Right] O2 Sat by Pulse 99 Oximetry Physical Exam: - General Limitations: No Limitations General appearance: alert, in no apparent distress - Head Head exam: Present: atraumatic, normocephalic - Eye Eye exam: Present: normal appearance, EOMI - ENT ENT exam: Present: mucous membranes moist - Neck Neck exam: Present: normal inspection - Respiratory Respiratory exam: Absent: respiratory distress - Cardiovascular Cardiovascular Exam: Present: regular rate, normal rhythm - GI/Abdominal GI/Abdominal exam: Absent: distended - Extremities Exam Extremities exam: Present: normal appearance - Neurological Exam Neurological exam: Present: alert, oriented X3. - Psychiatric Psychiatric exam: Present: normal affect, normal mood - Skin Skin exam: Present: warm, dry, intact, normal color MSE screening note: Focused history and physical exam performed. Due to findings the following was ordered: n/a 34 yo F, hx of hyperthyroidism, presents to ED requesting refill on methimazole. Pt has not missed any doses. States has one pill remaining. Does not show any signs of thyrotoxicosis. Pt does not have an emergent medical condition at this time. Outpt resources given, f/u advised. Return precautions given. ED Medical Decision Making - Medical Decision Making 34 yo F presents to ED requesting refill on methimazole. Pt has not missed any doses. States has one pill remaining. Does not show any signs of thyrotoxicosis. Pt does not have an emergent medical condition at this time. Outpt resources given, f/u advised. Return precautions given. ED Disposition for MSE Clinical Impression: Encounter for medication refill Disposition: MED SCREENING EXAM-LEFT Is pt being admited?: No Condition: Stable Referrals: CARBUCCIA,DEVONTE, MD [Staff Physician] - [facility] [Provider Group] - [facility] [Outside] - [facility] Time of Disposition: 10:34
== END 2019-10-19 10:43 | disposition left against medical advice (07) ==
LOC: ED 08:53
DX: I10 Essential (primary) hypertension (principal); E05.00 Thyrotoxicosis with diffuse goiter without thyrotoxic crisis or storm; Z76.0 Encounter for issue of repeat prescription
CPT/HCPCS: 99282